=== PATIENT | male | born 1980 | race Caucasian/White ===

== ENCOUNTER 2016-11-29 11:08 | Emergency (ER) | payer OTHER ==
[2016-11-29 11:20] VITALS: BP 138/102
[2016-11-29] MEDS ORDERED: Cyclobenzaprine 10 MG Tab PO ONE (11:56)
[2016-11-29] MEDS ORDERED: Ibuprofen 800 MG Tab PO ONE (11:56)
--- NOTE | 2016-11-29 12:00 | EDM.PDOC ---
ED HPI GENERAL MEDICAL PROBLEM - General Chief Complaint: Back Pain or Injury Stated Complaint: BACK PAIN Time Seen by Provider: 11/29/16 11:29 Source of Information: Reports: Patient History Limitations: Reports: No Limitations - History of Present Illness INITIAL COMMENTS - FREE TEXT/NARRATIVE: The patient is a 33-year-old male with a chief complaint of back pain. Patient states that pain for about a week. He does not recall an injury. He has severe pain in the lower back. Pain is constant, waxes and wanes, worse with movement. He can't find a comfortable position. He's been taking ibuprofen for pain with no relief. The pain is mostly centered in the low back, sharp, sometimes radiates shocklike pain down his left leg. No weakness or numbness. No urinary difficulty. No fever or recent illness. Had back pain many years ago but nothing recently. 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 Lower Back Pain Score (Numeric/FACES): 6 - Related Data Allergies Allergy/AdvReac Type Severity Reaction Status Date / Time No Known Allergies Allergy Verified 11/29/16 11:15 Home Meds: Home Meds Cyclobenzaprine [Flexeril] 10 mg PO TID PRN #30 tablet 11/29/16 [Rx] Hydrochlorothiazide 12.5 mg PO DAILY 11/29/16 [History] Ibuprofen [Motrin] 800 mg PO Q8H PRN #40 tablet 11/29/16 [Rx] Metoprolol Succinate [Toprol XL] 25 mg PO DAILY 11/29/16 [History] oxyCODONE 5 mg PO Q6H PRN #16 tablet 11/29/16 [Rx] Past Medical History Cardiovascular History: Reports: Hypertension - Past Surgical History Cardiovascular Surgical History: Reports: None GI Surgical History: Reports: Hernia Repair/Other Social & Family History - Tobacco Use Smoking Status *Q: Current Every Day Smoker Years of Tobacco use: 2 Packs/Tins Daily: 0.5 Used Tobacco, but Quit: Yes Month Tobacco Last Used: cigarettes last used 10 years ago, currently uses chewing tobacco Second Hand Smoke Exposure: No - Caffeine Use Caffeine Use: Reports: Coffee - Recreational Drug Use Recreational Drug Use: No ED ROS GENERAL - Review of Systems Review Of Systems: See Below Constitutional: Denies: Fever Respiratory: Denies: Cough Cardiovascular: Denies: Chest Pain GI/Abdominal: Denies: Abdominal Pain : Denies: Dysuria, Incontinence, Urinary Retention Musculoskeletal: Reports: Back Pain Neurological: Denies: Numbness, Tingling, Weakness ED EXAM,LOWER BACK PAIN/INJURY - Physical Exam Exam: See Below Exam Limited By: No Limitations General Appearance: Alert, Mild Distress Eye Exam: Bilateral Eye: Normal Inspection Ears: Normal External Exam Nose: Normal Inspection Throat/Mouth: Normal Inspection, Normal Voice, No Airway Compromise Head: Atraumatic, Normocephalic Neck: Normal Inspection, Supple, Non-Tender, Full Range of Motion Respiratory/Chest: No Respiratory Distress Back Exam: Normal Inspection, Vertebral Tenderness (Throughout the mid and lower L-spine. Also has some paraspinal tenderness. No skin changes. No step- off or deformity. No fluctuance or mass. Straight leg raise positive on the left.). No: CVA Tenderness (L), CVA Tenderness (R) Neurological: Alert, Normal Dorsiflexion, Normal Plantar Flexion, Oriented x 3 Psychiatric: Normal Affect, Normal Mood Skin Exam: Warm, Dry, Intact, Normal Color, No Rash Course - Vital Signs Last Recorded V/S: Last Vital Signs Temp 36.2 C 11/29/16 11:15 Pulse 99 11/29/16 11:15 Resp 20 11/29/16 11:15 BP 138/102 H 11/29/16 11:15 Pulse Ox 100 11/29/16 11:15 - Orders/Labs/Meds Meds: Medications Discontinued Medications Generic Name Dose Route Start Last Admin Trade Name Freq PRN Reason Stop Dose Admin Cyclobenzaprine HCl 10 mg 11/29/16 11:56 11/29/16 12:00 Flexeril PO 11/29/16 11:57 10 mg ONETIME ONE Administration Ibuprofen 800 mg 11/29/16 11:56 11/29/16 12:00 Motrin PO 11/29/16 11:57 800 mg ONETIME ONE Administration Departure - Departure Time of Disposition: 11:57 Disposition: Home, Self-Care 01 Clinical Impression: Back pain Qualifiers: Back pain location: low back pain Chronicity: acute Back pain laterality: midline Sciatica presence: with sciatica Sciatica laterality: sciatica of left side Qualified Code(s): M54.42 - Lumbago with sciatica, left side - Discharge Information Prescriptions: Cyclobenzaprine [Flexeril] 10 mg PO TID PRN #30 tablet PRN Reason: Muscle Spasm Ibuprofen [Motrin] 800 mg PO Q8H PRN #40 tablet PRN Reason: Pain oxyCODONE 5 mg PO Q6H PRN #16 tablet PRN Reason: Pain Instructions: Back Pain, Adult Referrals: PCP,None [Primary Care Provider] - Forms: ED Department Discharge Additional Instructions: 1. Take ibuprofen as prescribed for pain 2. Take cyclobenzaprine (Flexeril) as prescribed for muscle spasm 3. Take oxycodone as needed for severe pain. No driving or working while taking this medication 4. Follow up with a clinic provider next week for further care. Call [phone] if you'd like to schedule here.
== END 2016-11-29 12:09 | disposition home or self-care (01) ==
LOC: JD.ED 11:08
DX: M54.42 Lumbago with sciatica, left side (principal); I10 Essential (primary) hypertension; F17.210 Nicotine dependence, cigarettes, uncomplicated; Z98.890 Other specified postprocedural states; Z79.899 Other long term (current) drug therapy
CPT/HCPCS: 99283; A9270